=== PATIENT | female | born 1970 | race Caucasian/White ===

== ENCOUNTER 2019-07-02 20:56 | Emergency (ER) | payer BC, OTHER ==
[~2019-07-02] VITALS: Ht 172.7 cm; Wt 81.6 kg
[2019-07-02 21:10] VITALS: BP_SYST 155
[2019-07-02] MEDS ORDERED: traMADol HCL HCL 50 MG TABLET (ULTRAM) PO ONE (22:15)
[2019-07-02 22:49] VITALS: BP_SYST 148
== END 2019-07-02 22:49 | disposition home or self-care (01) ==
LOC: SED 20:56
DX: S86.811A Strain of other muscle(s) and tendon(s) at lower leg level, right leg, initial encounter (principal); I10 Essential (primary) hypertension; X58.XXXA Exposure to other specified factors, initial encounter; Y93.89 Activity, other specified; Y92.89 Other specified places as the place of occurrence of the external cause; Y99.8 Other external cause status
CPT/HCPCS: 73564; 99283